=== PATIENT | male | born 1985 ===

== ENCOUNTER 2017-04-18 21:00 | Emergency (ER) | payer SELFPAY ==
[2017-04-18 21:03] VITALS: BP 132/81; PULSE 69; RESP 16; TEMP 98.4; O2SAT 99
== END 2017-04-18 22:46 | disposition left against medical advice (07) ==
LOC: NED 21:00
DX: T14.8 Other injury of unspecified body region (principal); X58.XXXA Exposure to other specified factors, initial encounter; Z53.21 Procedure and treatment not carried out due to patient leaving prior to being seen by health care provider
CPT/HCPCS: 99281